=== PATIENT | male | born 1930 | race Caucasian/White ===

== ENCOUNTER 2017-06-01 18:08 | Emergency (ER) | payer OTHER ==
[2017-06-01] MEDS ORDERED: Sodium Chloride 0.9% 10 ML Syringe FLUSH PRN (18:23)
--- NOTE | 2017-06-01 18:25 | EDM.PDOC ---
ED HPI GENERAL MEDICAL PROBLEM - General Chief Complaint: Lower Extremity Injury/Pain Stated Complaint: [facility] Time Seen by Provider: 06/01/17 18:25 Source of Information: Reports: Patient, EMS History Limitations: Reports: No Limitations - History of Present Illness INITIAL COMMENTS - FREE TEXT/NARRATIVE: 86-year-old male presents via [facility] for evaluation treatment of injuries sustained from all. Reportedly patient fell around 1300 today. He was able to get himself up and crawled to his chair. He is able to sit in his chair but could not get out of the chair. His daughter checked on him and press the medical alert, which was hanging on the wall, for assistance. He is currently complaining of pain to the left hip. Patient is relatively simple and does not provide a reliable history. He denies any head trauma, headaches, chest pain or abdominal pain. He denies any shortness of breath or trouble breathing. Reports that he felt dizzy and that is the reason that he fell. He is not on any blood thinners. Onset: Today Left Leg Pain Score (Numeric/FACES): 9 - Related Data Allergies Allergy/AdvReac Type Severity Reaction Status Date / Time No Known Allergies Allergy Verified 06/01/17 18:19 Home Meds: Home Meds Acetaminophen 650 mg PO Q4HR PRN 05/18/16 [History] Betamethasone/Propylene Glyc [Betamethasone Dp Aug 0.05% Crm] 1 applic TOP TID PRN 05/18/16 [History] Cyanocobalamin (Vitamin B-12) [Cyanocobalamin Injection] 1 mg IM ASDIRECTED [History] Omeprazole 20 mg PO DAILY 05/18/16 [History] Simvastatin 20 mg PO DAILY 05/18/16 [History] Bisacodyl [Dulcolax] 10 mg RECTAL DAILY PRN #0 supp 05/25/16 [Rx] Acetaminophen [Tylenol] 650 mg PO BID 07/22/16 [History] Albuterol [IJD: Albuterol] 2.5 mg NEB TID PRN 07/22/16 [History] Alum Hydrox/Mag Hydrox/Simeth [Mag-Al Plus] 1 dose PO QID PRN 07/22/16 [History] Cetirizine [ZyrTEC] 1 tab PO BEDTIME 07/22/16 [History] Cholecalciferol (Vitamin D3) [Vitamin D3] 1 tab PO DAILY 07/22/16 [History] Camphor/Menthol [Sarna Lotion] 59 ml TP ASDIRECTED PRN 06/01/17 [History] Docusate Sodium [Colace] 1 tab PO BID 06/01/17 [History] Donepezil HCl 1 tab PO DAILY 06/01/17 [History] Past Medical History HEENT History: Reports: Allergic Rhinitis, Hard of Hearing Cardiovascular History: Reports: High Cholesterol, Hypertension, PVD Respiratory History: Reports: None Gastrointestinal History: Reports: GERD, Other (See Below) Other Gastrointestinal History: EGD/biopsy 02/21/2003 negative for Doss's esophagus Genitourinary History: Reports: Other (See Below) Other Genitourinary History: renal insufficiency RN MANAGER History: Reports: None Musculoskeletal History: Reports: Fracture, Osteoporosis, Other (See Below) Other Musculoskeletal History: R knee cap Neurological History: Reports: None Psychiatric History: Reports: Alzheimers Disease, Dementia Endocrine/Metabolic History: Reports: Other (See Below) Other Endocrine/Metabolic History: prediabetes Hematologic History: Reports: B12 Deficiency Immunologic History: Reports: None Oncologic (Cancer) History: Reports: None Dermatologic History: Reports: Other (See Below) Other Dermatologic History: dermatitis - Infectious Disease History Infectious Disease History: Reports: MRSA - Past Surgical History GI Surgical History: Reports: Hernia, Abdominal Musculoskeletal Surgical History: Reports: Other (See Below) Social & Family History - Family History Family Medical History: Unobtainable - Tobacco Use Smoking Status *Q: Former Smoker Second Hand Smoke Exposure: No - Caffeine Use Caffeine Use: Reports: Coffee - Alcohol Use Days Per Week of Alcohol Use: 0 Number of Drinks Per Day: 0 Total Drinks Per Week: 0 - Recreational Drug Use Recreational Drug Use: No Review of Systems - Review of Systems Review Of Systems: See Below Respiratory: Denies: Shortness of Breath Cardiovascular: Denies: Chest Pain GI/Abdominal: Denies: Abdominal Pain Musculoskeletal: Reports: Leg Pain (left hip and proximal thigh pain). Denies: Neck Pain, Back Pain Neurological: Reports: Dizziness ED EXAM, GENERAL - Physical Exam Exam: See Below Exam Limited By: No Limitations General Appearance: Alert, WD/WN, No Apparent Distress Eye Exam: Bilateral Eye: Normal Inspection Ears: Normal External Exam Nose: Normal Inspection Throat/Mouth: Normal Inspection, Normal Voice, No Airway Compromise Head: Atraumatic, Normocephalic Neck: Normal Inspection, Supple, Non-Tender, Full Range of Motion Respiratory/Chest: No Respiratory Distress, Lungs Clear, Normal Breath Sounds, Chest Non-Tender Cardiovascular: Normal Peripheral Pulses, Regular Rate, Rhythm, No Murmur Peripheral Pulses: 1+: Posterior Tibial (L), Posterior Tibial (R), Dorsalis Pedis (L), Dorsalis Pedis (R) GI/Abdominal: Normal Bowel Sounds, Soft, Non-Tender, Pelvis Stable Back Exam: Normal Inspection. No: Vertebral Tenderness Extremities: Other (left leg is externally rotated and shortened) Neurological: Alert, Normal Cognition, Other (smile is symmetric) Psychiatric: Normal Affect, Normal Mood Skin Exam: Warm, Dry, Normal Color EKG INTERPRETATION EKG Date: 06/01/17 Time: 18:40 Rhythm: NSR Rate (Beats/Min): 83 [place]: Normal P-Wave: Present QRS: Normal ST-T: Normal QT: Normal EKG Interpretation Comments: NSR at 893 bpm. No acute changes. PVC present. Reviewed by myself and Dr. Gorman. Course - Vital Signs Last Recorded V/S: Last Vital Signs Temp 37.1 C 06/01/17 18:27 Pulse 88 06/01/17 18:27 Resp 22 H 06/01/17 18:27 BP 138/47 L 06/01/17 18:27 Pulse Ox 91 L 06/01/17 18:27 - Orders/Labs/Meds Orders: Active Orders 24 hr Category Date Time Status Cardiac Monitoring [RC] . DIRECTED Care 06/01/17 18:23 Active EKG 12 Lead [EKG Documentation Completion] [RC] STAT Care 06/01/17 18:23 Active Doe Catheter Insertion [Insert Urinary Catheter] [OM. Care 06/01/17 20:15 Ordered PC] Q24H Peripheral IV Care [RC] . DIRECTED Care 06/01/17 18:24 Active Urinary Catheter Assessment [RC] ASDIRECTED Care 06/01/17 20:16 Active Cervical Spine wo Cont [CT] Stat Exams 06/01/17 18:23 Taken Chest 1V Frontal [CR] Stat Exams 06/01/17 18:23 Taken Head wo Cont [CT] Stat Exams 06/01/17 18:23 Taken Hip Min 2V or 3V w Pelvis Lt [CR] Stat Exams 06/01/17 18:23 Taken Sodium Chloride 0.9% [Normal Saline] 1,000 ml Med 06/01/17 20:03 Active IV ONETIME Sodium Chloride 0.9% [Saline Flush] Med 06/01/17 18:23 Active 10 ml FLUSH ASDIRECTED PRN Peripheral IV Insertion Adult [OM.PC] Routine Oth 06/01/17 18:23 Ordered Medication Orders Sodium Chloride (Normal Saline) 1,000 mls @ 100 mls/hr IV ONETIME ONE Stop: 06/02/17 06:02 Sodium Chloride (Saline Flush) 10 ml FLUSH ASDIRECTED PRN PRN Reason: Keep Vein Open Last Admin: 06/01/17 18:57 Dose: 10 ml Labs: Laboratory Tests 06/01/17 06/01/17 06/01/17 Range/Units 18:45 19:00 19:00 WBC 13.80 H (4.23-9.07) K/mm3 RBC 4.69 (4.63-6.08) M/mm3 Hgb 14.0 (13.7-17.5) gm/L Hct 43.4 (40.1-51.0) % MCV 92.5 H (79.0-92.2) fl MCH 29.9 (25.7-32.2) pg MCHC 32.3 (32.2-35.5) g/dl RDW Std Deviation 46.1 H (35.1-43.9) fL Plt Count 164 (163-337) K/mm3 MPV 11.0 (9.4-12.3) fl Neutrophils % (Manual) 93 H (40-60) % Band Neutrophils % 0 (0-10) % Lymphocytes % (Manual) 1 L (20-40) % Atypical Lymphs % 0 % Monocytes % (Manual) 6 (2-10) % Eosinophils % (Manual) 0 L (0.8-7.0) % Basophils % (Manual) 0 L (0.2-1.2) Platelet Estimate Adequate Plt Morphology Comment Normal RBC Morph Comment Normal Sodium 146 H (136-145) mEq/L Potassium 3.5 (3.5-5.1) mEq/L Chloride 111 H (98-107) mEq/L Carbon Dioxide 26 (21-32) mEq/L Anion Gap 12.5 (5-15) BUN 20 H (7-18) mg/dL Creatinine 1.5 H (0.7-1.3) mg/dL Est Cr Clr Drug Dosing 25.00 mL/min Estimated GFR (MDRD) 44 (>60) mL/min BUN/Creatinine Ratio 13.3 L (14-18) Glucose 218 H (83-115) mg/dL Calcium 8.6 (8.5-10.1) mg/dL Total Bilirubin 0.4 (0.2-1.0) mg/dL AST 18 (15-37) U/L ALT 13 L (16-63) U/L Alkaline Phosphatase 93 (46-116) U/L Creatine Kinase 71 (39-308) U/L CK-MB (CK-2) 1.1 (0-3.6) ng/ml Troponin I < 0.017 (0.00-0.056) ng/mL Total Protein 6.5 (6.4-8.2) g/dl Albumin 3.0 L (3.4-5.0) g/dl Globulin 3.5 gm/dL Albumin/Globulin Ratio 0.9 L (1-2) Urine Color Yellow (Yellow) Urine Appearance Clear (Clear) Urine pH 6.0 (5.0-8.0) Ur Specific [place] 1.020 (1.005-1.030) Urine Protein Trace H (Negative) Urine Glucose (UA) 2+ H (Negative) Urine Ketones Negative (Negative) Urine Occult Blood 2+ H (Negative) Urine Nitrite Negative (Negative) Urine Bilirubin Negative (Negative) Urine Urobilinogen 0.2 (0.2-1.0) Ur Leukocyte Esterase Negative (Negative) Urine RBC 5-10 H (0-5) /hpf Urine WBC 0-5 (0-5) /hpf Ur Epithelial Cells 0-5 (0-5) /hpf Urine Bacteria Not seen (FEW) /hpf Hyaline Casts 0-5 (0-5) /lpf Urine Mucus Few (FEW) /hpf Meds: Medications Generic Name Dose Route Start Last Admin Trade Name Freq PRN Reason Stop Dose Admin Sodium Chloride 1,000 mls @ 100 mls/hr 06/01/17 20:03 Normal Saline IV 06/02/17 06:02 ONETIME ONE Sodium Chloride 10 ml 12/28/17 18:23 06/01/17 18:57 Saline Flush FLUSH 10 ml ASDIRECTED PRN Administration Keep Vein Open Discontinued Medications Generic Name Dose Route Start Last Admin Trade Name [place] PRN Reason Stop Dose Admin Hydromorphone HCl 0.25 mg 06/01/17 18:26 06/01/17 18:56 Dilaudid IVPUSH 06/01/17 18:27 0.25 mg ONETIME ONE Administration Sodium Chloride 1,000 mls @ 500 mls/hr 06/01/17 18:26 06/01/17 18:53 Normal Saline IV 06/01/17 20:25 500 mls/hr ONETIME ONE Administration Ondansetron HCl 4 mg 06/01/17 18:26 06/01/17 18:53 Zofran IVPUSH 06/01/17 18:27 4 mg ONETIME ONE Administration - Radiology Interpretation Free Text/Narrative:: CT of the head without contrast impression per [facility]: Chronic changes. No acute intracranial process. CT of the neck without contrast impression per [facility]: spondylytic changes. No acute fracture. Markedly dilated esophagus. 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 1 view chest xray shows emphysematous changes. pelvis and left hip xray shows a left intrertrochanteric fracture. - Re-Assessments/Exams Free Text/Narrative Re-Assessment/Exam: 06/01/17 20:45 RN contacted [facility] who contacted the patient's sister for instruction for disposition. We have no orthopedics global transportation manager tonight. Sister agrees for transfer to [facility] for further care. 06/01/17 20:[address] Sharpe at [place]. Will send him to [facility]. Spoke with Dr. Mcknight, orthopedics global transportation manager with [facility]. Accepts the patient. Patient will go to the ER. ER was notified. Departure - Departure Time of Disposition: 20:57 Disposition: DC/Tfer to Acute Hospital 02 Condition: Fair Clinical Impression: Intertrochanteric fracture, hip - Discharge Information Referrals: Ferny Maddox MD [Primary Care Provider] - Forms: ED Department Discharge Additional Instructions: Patient to go to [facility] for left hip fracture. He will go by ambulance. Dr. Phillips, orthopedics accepting. He will through the ER. - My Orders Last 24 Hours: My Active Orders 06/01/17 18:23 Cardiac Monitoring [RC] . DIRECTED EKG 12 Lead [EKG Documentation Completion] [RC] STAT Cervical Spine wo Cont [CT] Stat Chest 1V Frontal [CR] Stat Head wo Cont [CT] Stat Hip Min 2V or 3V w Pelvis Lt [CR] Stat Sodium Chloride 0.9% [Saline Flush] 10 ml FLUSH ASDIRECTED PRN Peripheral IV Insertion Adult [OM.PC] Routine 06/01/17 18:24 Peripheral IV Care [RC] . DIRECTED 06/01/17 20:03 Sodium Chloride 0.9% [Normal Saline] 1,000 ml IV ONETIME 06/01/17 20:15 Doe Catheter Insertion [Insert Urinary Catheter] [OM.PC] Q24H 06/01/17 20:16 Urinary Catheter Assessment [RC] ASDIRECTED - Assessment/Plan Last 24 Hours: My Active Orders 06/01/17 18:23 Cardiac Monitoring [RC] . DIRECTED EKG 12 Lead [EKG Documentation Completion] [RC] STAT Cervical Spine wo Cont [CT] Stat Chest 1V Frontal [CR] Stat Head wo Cont [CT] Stat Hip Min 2V or 3V w Pelvis Lt [CR] Stat Sodium Chloride 0.9% [Saline Flush] 10 ml FLUSH ASDIRECTED PRN Peripheral IV Insertion Adult [OM.PC] Routine 06/01/17 18:24 Peripheral IV Care [RC] . DIRECTED 06/01/17 20:03 Sodium Chloride 0.9% [Normal Saline] 1,000 ml IV ONETIME 06/01/17 20:15 Doe Catheter Insertion [Insert Urinary Catheter] [OM.PC] Q24H 06/01/17 20:16 Urinary Catheter Assessment [RC] ASDIRECTED
[2017-06-01] MEDS ORDERED: Sodium Chloride 0.9% 1,000 ML IV ONE ×2 (18:26→20:03)
[2017-06-01] MEDS ORDERED: Ondansetron 4 MG/2 ML SDV IVPUSH ONE (18:26)
[2017-06-01] MEDS ORDERED: HYDROmorphone 0.5 MG/0.5 ML Syringe IVPUSH ONE (18:26)
[2017-06-01 18:33] VITALS: BP 138/47
--- NOTE | 2017-06-02 10:40 | CT ---
CT cervical spine Technique: Multiple axial sections were obtained from above C1 inferiorly to the top of T4. Reconstructed sagittal and coronal images were reviewed. Findings: Scattered disc space narrowing is seen. Disc space narrowing most prominent at C5-C6 with vacuum phenomena. Cystic change seen within the vertebral bodies of C3, C4, C5 and C6. Mild scattered anterior endplate osteophytes are seen. Mild scattered posterior osteophytes are also noted. Degenerative spurring noted within the uncovertebral joints throughout the cervical spine. Mastoid sinuses and middle ear cavities are clear. Posterior skull base is intact. Multiple levels of neural foraminal narrowing are seen. Dilated esophagus is partially visualized. No acute fracture or abnormal subluxation is seen. Mild aneurysmal dilatation partially visualized within the thoracic aorta with measurement of around 4.2 cm. Impression: 1. Degenerative change is seen throughout the cervical spine. 2. Nonspecific dilated esophagus. This may represent distal obstruction or achalasia or reflux. 3. Mild aneurysmal dilatation of the visualized thoracic aorta. 4. Nothing acute is appreciated on CT study of the cervical spine. Diagnostic code #3 I agree with preliminary report issued by [facility] ([facility] report finalized on 06/01/17, 9:08 PM Central Time)
--- NOTE | 2017-06-02 10:43 | CR ---
Left hip and pelvis: AP view of the pelvis was obtained as well as lateral and AP view of the left hip. Angulated intertrochanteric fracture is identified. Mild joint space narrowing is seen within the left hip. Joint space within the right hip is preserved. Degenerative change is noted within the pubic symphysis. Bony structures are osteopenic. Vascular calcification is noted. Impression: 1. Angulated intertrochanteric fracture within the left hip. 2. Other incidental findings. Diagnostic code #3
--- NOTE | 2017-06-02 10:43 | CT ---
Head CT Technique: Multiple axial sections through the brain were obtained. Intravenous contrast was not utilized. Comparison: No prior intracranial imaging. Findings: Ventricles along the basal cisterns and sulci over the convexities are mildly prominent. Diminished density noted within the periventricular and subcortical white matter compatible with small vessel ischemic demyelination change. 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 Mild areas of diminished density noted within the basal ganglia compatible with old lacunar infarcts. No other abnormal parenchymal densities are seen. Bone window settings were reviewed which show no acute calvarial abnormality. Minimal mucosal thickening is seen within the ethmoid and within the left maxillary sinus. No acute calvarial abnormality is seen. Impression: 1. Senescent change. 2. Nothing acute is appreciated on noncontrast head CT exam. Diagnostic code #2 I agree with preliminary report issued by [facility] ([facility] report finalized on 06/01/17, 9:03 PM Central Time)
--- NOTE | 2017-06-02 10:43 | CR ---
Chest: Frontal view of the chest was obtained. Comparison: Prior chest x-ray of 05/23/16. Mild bibasilar atelectasis is seen. Lungs otherwise are clear. Heart size appears at the upper limits of normal. Tortuous thoracic aorta is seen. Old healed fracture is noted within the proximal right humerus. Impression: 1. Incidental findings. Diagnostic code #2
== END 2017-06-01 21:45 ==
LOC: JD.ED 18:08
DX: S72.142A Displaced intertrochanteric fracture of left femur, initial encounter for closed fracture (principal); I10 Essential (primary) hypertension; E78.00 Pure hypercholesterolemia, unspecified; K21.9 Gastro-esophageal reflux disease without esophagitis; G30.9 Alzheimer's disease, unspecified; F02.80 Dementia in other diseases classified elsewhere, unspecified severity, without behavioral disturbance, psychotic disturbance, mood disturbance, and anxiety; Z87.891 Personal history of nicotine dependence; Z79.899 Other long term (current) drug therapy; W19.XXXA Unspecified fall, initial encounter
CPT/HCPCS: 36415; 51702; 70450; 71010; 72125; 73502; 80053; 81001; 82550; 82553; 84484; 85025; 93005; 96361; 96374; 96375; 99285; J1170; J2405; J7040; J7050; 93010; 99284-25